=== PATIENT | male | born 1995 | race Asian ===

== ENCOUNTER 2019-12-04 17:48 | Emergency (ER) | payer OTHER ==
[~2019-12-04] VITALS: Ht 175.3 cm; Wt 63.0 kg
[2019-12-04 18:00] VITALS: BP 159/66; Ht 175.3 cm; Wt 63.0 kg
[2019-12-04 18:52] LABS: BASOPHIL % 0.4 % (0-2); PLATELET COUNT 212 x10^3mcL (130-400); RED CELL DISTRIBUTION WIDTH 13.8 % (11.5-14.5)
[2019-12-04 19:05] LABS: CALCIUM 8.9 mg/dL (8.5-10.1); CARBON DIOXIDE 27.9 mmol/L (21-32); CHLORIDE SERUM 104 mmol/L (98-107); GFR1 > 60 mL/min; GLUCOSE SERUM 88 mg/dL (74-106); POTASSIUM SERUM 4.4 mmol/L (3.5-5.1); SODIUM SERUM 140 mmol/L (136-145)
[2019-12-04 19:09] LABS: ALBUMIN 4.4 g/dL (3.4-5.0); ALKALINE PHOSPHATASE 62 U/L (46-116); ALT/SGPT 22 U/L (16-63); AST/SGOT 13 U/L (15-37); BILIRUBIN TOTAL 0.62 mg/dL (0.20-1.00); LIPASE 83 IU/L (73-393); TOTAL PROTEIN, SERUM 7.5 g/dL (6.4-8.2)
== END 2019-12-04 19:31 | disposition home or self-care (01) ==
LOC: ED 17:48
PROVIDERS: Emergency Medicine
DX: R10.31 Right lower quadrant pain (principal); R12 Heartburn; M25.512 Pain in left shoulder
CPT/HCPCS: 36415